=== PATIENT | female | born 1985 | race African-American/Black ===

== ENCOUNTER 2024-01-06 16:18 | Inpatient (IN) | payer MEDICAID ==
[~2024-01-06] VITALS: Ht 175.3 cm; Wt 81.6 kg
[2024-01-06 16:20] VITALS: O2SAT 100
[2024-01-06 17:22] LABS: CHLORIDE 102 mEq/L (98-107); POTASSIUM 3.9 mEq/L (3.5-5.1); SODIUM 134 mEq/L (136-145)
[2024-01-06 17:23] LABS: CALCIUM 9.2 mg/dL (8.7-10.4); CARBON DIOXIDE 28 mEq/L (21-32)
[2024-01-06 17:28] LABS: CREATININE 0.8 mg/dL (0.6-1.0); GLUCOSE 101 mg/dL (70-105); UREA NITROGEN BLOOD 8 mg/dL (9-23)
[2024-01-06 17:29] LABS: BASOPHILS % 0.4 % (0.0-2.0); DIFFERENTIAL COMMENT 0; ETHANOL BLOOD < 10 mg/dL (<10); HCG SCREEN NEGATIVE; HEMATOCRIT. 35.8 % (36.0-48.0); HEMOGLOBIN. 12.6 g/dL (12.0-16.0); LYMPHOCYTES % 32.2 % (20.0-50.0); MEAN CORPUSCULAR HEMOGLOBIN 27.6 pg (28.0-32.0); MEAN CORPUSCULAR HGB CONC 35.1 g/dL (31.0-37.0); MEAN CORPUSCULAR VOLUME 78.6 fL (81.0-99.0); MEAN PLATELET VOLUME 8.8 fl (7.4-10.4); MONOCYTES % 10.6 % (2.0-8.0); NEUTROPHILS % 55.8 % (40.0-76.0); PLATELET 316 x1000/uL (130-400); RED BLOOD CELL COUNT 4.56 mill/uL (4.2-5.4); RED CELL DISTRIBUTION WIDTH 14.2 % (11.6-14.6); WHITE BLOOD COUNT 8.7 x1000/uL (4.5-11.0)
[2024-01-06 17:30] LABS: ACETAMINOPHEN < 2 ug/mL (10-30); PROTHROMBIN TIME 10.8 sec (9.6-11.0)
[2024-01-06 17:31] LABS: TROPONIN I HIGH SENSITIVITY < 4 ng/L (3.0-34)
[2024-01-06] MEDS ORDERED: LORAZEPAM 2MG/ML INJ IV PRN (19:45)
[2024-01-06] MEDS ORDERED: GUAIFENESIN 200MG/10ML SUGAR FREE UDC PO PRN (19:45)
[2024-01-06] MEDS ORDERED: DOCUSATE SODIUM 100MG CAPSULE PO PRN (19:45)
[2024-01-06] MEDS ORDERED: MAGNESIUM/ALUMINUM HYDROXIDE/SIMETHICONE 30ML UDC PO PRN (19:45)
[2024-01-06] MEDS ORDERED: IPRATROPIUM/ALBUTEROL 0.5-3(2.5)MG/3ML NEB HHN PRN (19:45)
[2024-01-06] MEDS ORDERED: ONDANSETRON HCL 4MG/2ML INJ IV PRN (19:45)
[2024-01-06] MEDS ORDERED: ACETAMINOPHEN 325MG TABLET PO PRN ×2 (19:45)
[2024-01-06] MEDS ORDERED: CLONIDINE 0.1MG TABLET PO PRN (19:45)
[2024-01-06 20:25] LABS: CREATINE KINASE 63 IU/L (34-145)
[2024-01-06 20:27] LABS: TROPONIN I HIGH SENSITIVITY < 4 ng/L (3.0-34)
[2024-01-06] MEDS: FAMOTIDINE 20MG TABLET PO SCH (21:13)
[2024-01-06] MEDS ORDERED: IOHEXOL-350 100 ML BOTTLE ONE (23:37)
[2024-01-07] MEDS: HYDROCODONE/ACETAMINOPHEN 5/325MG TABLET PO PRN
[2024-01-07 01:56] VITALS: BP 128/64; PULSE 71; RESP 20; TEMP 36.8072
[2024-01-07 06:19] LABS: CARBON DIOXIDE 29 mEq/L (21-32); CHLORIDE 102 mEq/L (98-107); POTASSIUM 4.1 mEq/L (3.5-5.1); SODIUM 137 mEq/L (136-145)
[2024-01-07 06:20] LABS: CALCIUM 9.2 mg/dL (8.7-10.4)
[2024-01-07 06:24] LABS: CREATININE 0.8 mg/dL (0.6-1.0); GLUCOSE 80 mg/dL (70-105)
[2024-01-07 06:25] LABS: TRIGLYCERIDE 80 mg/dL (0-150); UREA NITROGEN BLOOD 9 mg/dL (9-23)
[2024-01-07 06:26] LABS: CHOLESTEROL 170 mg/dL (<200); LDL CHOLESTEROL 79 mg/dL (5-100)
[2024-01-07 06:27] LABS: HDL CHOLESTEROL 72 mg/dL (>65)
[2024-01-07 06:35] LABS: BASOPHILS % 0.5 % (0.0-2.0); EOSINOPHILS % 1.8 % (0.0-5.0); HEMATOCRIT. 35.1 % (36.0-48.0); HEMOGLOBIN. 12.3 g/dL (12.0-16.0); LYMPHOCYTES % 44.3 % (20.0-50.0); MEAN PLATELET VOLUME 9.4 fl (7.4-10.4); MONOCYTES % 11.2 % (2.0-8.0); NEUTROPHILS % 42.2 % (40.0-76.0); PLATELET 321 x1000/uL (130-400); RED BLOOD CELL COUNT 4.39 mill/uL (4.2-5.4); RED CELL DISTRIBUTION WIDTH 14.2 % (11.6-14.6); WHITE BLOOD COUNT 9.9 x1000/uL (4.5-11.0)
[2024-01-07 08:00] VITALS: BP 122/70; PULSE 78; RESP 20; TEMP 37.05852; O2SAT 100
[2024-01-07] MEDS: MULTIVITAMINS,THER W-MINERALS TABLET PO SCH (09:04)
[2024-01-07 09:06] LABS: CLARITY URINE CLEAR (CLEAR); COLOR URINE YELLOW (YELLOW); GLUCOSE URINE NEGATIVE (NEGATIVE); KETONES URINE NEGATIVE (NEGATIVE); LEUKOCYTE ESTERASE URINE NEGATIVE (NEGATIVE); NITRITE URINE NEGATIVE (NEGATIVE); OCCULT BLOOD URINE NEGATIVE (NEGATIVE); PH URINE 6.5 (4.5-8.0); PROTEIN URINE NEGATIVE (NEGATIVE); SPECIFIC GRAVITY URINE 1.013 (1.005-1.030); UROBILINOGEN URINE 0.2 E.U./dL (0.2-1.0)
[2024-01-07 09:20] LABS: *AMPHETAMINES SCREEN URINE NEGATIVE (NEGATIVE)
[2024-01-07 09:21] LABS: *BARBITURATES SCREEN URINE NEGATIVE (NEGATIVE); *BENZODIAZEPINES SCREEN URINE NEGATIVE (NEGATIVE); *COCAINE SCREEN URINE NEGATIVE (NEGATIVE); CANNABINOID URINE SCREEN NEGATIVE (NEGATIVE); ECSTASY MDMA SCREEN URINE NEGATIVE (NEGATIVE); METHADONE URINE SCREEN NEGATIVE (NEGATIVE); OPIATES URINE SCREEN NEGATIVE (NEGATIVE); PHENCYCLIDINE URINE SCREEN NEGATIVE (NEGATIVE)
[2024-01-07 11:51] VITALS: BP 126/74; PULSE 79; RESP 20; TEMP 36.89184; O2SAT 100
[2024-01-07 15:51] VITALS: BP 128/64; PULSE 76; RESP 20; TEMP 36.78072; O2SAT 99
[2024-01-07 20:00] VITALS: BP 124/76; PULSE 76; RESP 18; TEMP 37.28076; O2SAT 98
[2024-01-08] VITALS: BP 110/64; PULSE 68; RESP 18; TEMP 37.00296; O2SAT 99
[2024-01-08 04:39] VITALS: BP 123/53; PULSE 65; RESP 16; TEMP 36.72516; O2SAT 98
[2024-01-08 06:38] LABS: HEMATOCRIT 34.6 % (36.0-48.0); HEMOGLOBIN 12.2 g/dL (12.0-16.0); MEAN CORPUSCULAR HEMOGLOBIN 27.9 pg (28.0-32.0); MEAN CORPUSCULAR HGB CONC 35.1 g/dL (31.0-37.0); MEAN CORPUSCULAR VOLUME 79.4 fL (81.0-99.0); PLATELET 304 x1000/uL (130-400); RED BLOOD CELL COUNT 4.36 mill/uL (4.2-5.4); WHITE BLOOD COUNT 10.6 x1000/uL (4.5-11.0)
[2024-01-08 06:53] LABS: CHLORIDE 103 mEq/L (98-107); POTASSIUM 4.2 mEq/L (3.5-5.1); SODIUM 136 mEq/L (136-145)
[2024-01-08 06:54] LABS: CARBON DIOXIDE 27 mEq/L (21-32)
[2024-01-08 06:55] LABS: CALCIUM 8.9 mg/dL (8.7-10.4)
[2024-01-08 06:59] LABS: CREATININE 0.8 mg/dL (0.6-1.0); GLUCOSE 113 mg/dL (70-105); UREA NITROGEN BLOOD 11 mg/dL (9-23)
[2024-01-08 08:00] VITALS: BP 130/78; PULSE 68; RESP 18; TEMP 37.05852; O2SAT 100
[2024-01-08 08:51] VITALS: BP 130/78; PULSE 68; RESP 18
== END 2024-01-08 10:30 | disposition left against medical advice (07) | DRG 53 ==
LOC: ER 16:18 → 8WST 17:49 → EDBEDREQTM 17:53 → EDBEDREQ 17:53
PROVIDERS: ADMIT Hospitalist; ATTEND Hospitalist
DX: G40.909 Epilepsy, unspecified, not intractable, without status epilepticus (principal); G93.41 Metabolic encephalopathy; E87.1 Hypo-osmolality and hyponatremia; Z53.29 Procedure and treatment not carried out because of patient's decision for other reasons; E78.5 Hyperlipidemia, unspecified; J45.909 Unspecified asthma, uncomplicated; Z79.899 Other long term (current) drug therapy
CPT/HCPCS: 36415; 70496; 70498; 71045; 80048; 80061; 80305; 80307; 80320; 80329; 81003; 82550; 84484; 84703; 85025; 85027; 93005; 99291; Q9967; G0480

== ENCOUNTER 2024-01-08 12:18 | Emergency (ER) | payer SELFPAY ==
[~2024-01-08] VITALS: Ht 167.6 cm; Wt 87.0 kg
[2024-01-08 12:25] VITALS: BP 138/64; PULSE 72; RESP 18; TEMP 98; O2SAT 100
== END 2024-01-08 15:36 | disposition left against medical advice (07) ==
LOC: ER 12:25
DX: R07.89 Other chest pain (principal); Z53.21 Procedure and treatment not carried out due to patient leaving prior to being seen by health care provider
CPT/HCPCS: 93005; 99283

== ENCOUNTER 2024-05-26 23:51 | Emergency (ER) | payer MEDICAID ==
[~2024-05-26] VITALS: Ht 175.3 cm; Wt 76.0 kg
[2024-05-26 23:54] VITALS: O2SAT 96
[2024-05-27 01:11] LABS: BG BASE EXCESS 0.9 mmol/L (-2.0-3.0); BG CARBOXYHEMOGLOBIN 0.3 % (0.5-1.5); BG DEOXYHEMOGLOBIN 2.5 % (0.0-5.0); BG FRACTION INSPIRED OXYGEN 21; BG HCO3 ACT 24.7 mmol/L (21.0-28.0); BG METHEMOGLOBIN 0.3 % (0.5-1.5); BG OXYGEN SATURATION 97.5 % (94.0-98.0); BG OXYHEMOGLOBIN 96.9 % (94.0-98.0); BG PH 7.443 (7.350-7.450); BG TOTAL HEMOGLOBIN 12.8 g/dL (12.0-16.0); BG VENT MODE ROOM AIR
[2024-05-27 01:16] LABS: BASOPHILS % 0.5 % (0.0-2.0); DIFFERENTIAL COMMENT 0; EOSINOPHILS % 1.3 % (0.0-5.0); HEMATOCRIT. 36.3 % (36.0-48.0); HEMOGLOBIN. 12.6 g/dL (12.0-16.0); LYMPHOCYTES % 34.5 % (20.0-50.0); MEAN CORPUSCULAR HEMOGLOBIN 27.5 pg (28.0-32.0); MEAN CORPUSCULAR HGB CONC 34.8 g/dL (31.0-37.0); MEAN CORPUSCULAR VOLUME 79.1 fL (81.0-99.0); MEAN PLATELET VOLUME 8.7 fl (7.4-10.4); NEUTROPHILS % 57.7 % (40.0-76.0); PLATELET 301 x1000/uL (130-400); RED BLOOD CELL COUNT 4.59 mill/uL (4.2-5.4); RED CELL DISTRIBUTION WIDTH 14.5 % (11.6-14.6)
[2024-05-27 01:25] LABS: CARBON DIOXIDE 27 mEq/L (21-32); CHLORIDE 106 mEq/L (98-107); POTASSIUM 4.1 mEq/L (3.5-5.1); SODIUM 141 mEq/L (136-145)
[2024-05-27 01:26] LABS: CALCIUM 9.3 mg/dL (8.7-10.4)
[2024-05-27 01:31] LABS: CREATININE 0.7 mg/dL (0.6-1.0); ETHANOL BLOOD 68 mg/dL (<10); GLUCOSE 98 mg/dL (70-105); UREA NITROGEN BLOOD 9 mg/dL (9-23)
[2024-05-27 01:32] LABS: AMMONIA 17 uMol/L (<32)
[2024-05-27 01:33] LABS: CREATINE KINASE 57 IU/L (34-145)
[2024-05-27 01:49] LABS: TROPONIN I HIGH SENSITIVITY < 4 ng/L (3.0-34)
[2024-05-27 01:50] LABS: LACTIC ACID 2.1 mmol/L (0.4-2.0)
[2024-05-27 04:00] VITALS: BP 115/52; PULSE 76; RESP 16; TEMP 36.8; O2SAT 95
== END 2024-05-27 05:00 | disposition home or self-care (01) ==
LOC: ER 05-27
DX: R41.82 Altered mental status, unspecified (principal); R56.9 Unspecified convulsions; J45.909 Unspecified asthma, uncomplicated
CPT/HCPCS: 36415; 36600; 71045; 80048; 80320; 82140; 82375; 82550; 82805; 83605; 84484; 85025; 99284; G0480